=== PATIENT | female | born 1990 | race African-American/Black ===

== ENCOUNTER 2017-09-20 17:09 | Inpatient (IN) | payer OTHER ==
[~2017-09-20] VITALS: Ht 167.6 cm; Wt 172.0 kg
[2017-09-20] VITALS (9 sets, daily range): BP systolic 119–150; BP diastolic 63–90
[~2017-09-20 17:09] MED LIST: ALBUTEROL2.5 MG/3 M IH; TYLENOL WITH C1 EACH PO
[2017-09-20 19:19] LABS: BASOPHIL (%) 0.3 % (0-1); EOSINOPHIL (%) 0.6 % (0-5); HEMATOCRIT 31.8 % (36.0-46.0); HEMOGLOBIN 10.4 G/DL (11.9-15.5); IMMATURE GRANULOCYTE (%) 0.2 % (0.0-0.7); LYMPHOCYTE (%) 55.4 % (15-42); LYMPHOCYTE COUNT 3.6 K/uL (1.0-2.8); MCH 27.1 PG (29.0-34.0); MCHC 32.7 G/DL (30.0-36.0); MCV 82.8 FL (83-99); MONOCYTE (%) 4.7 % (3-12); MONOCYTE COUNT 0.3 K/uL (0-0.8); NEUTROPHIL (%) 38.8 % (45-76); NEUTROPHIL COUNT 2.5 K/uL (1.8-6.4); PLATELET COUNT 335 K/uL (156-360); RBC DIS.WIDTH-SD 41.5 % (39-53); RED BLOOD COUNT 3.84 M/uL (3.80-5.20); WHITE BLOOD COUNT 6.6 K/uL (4.1-10.2)
[2017-09-20 19:38] LABS: ALBUMIN 3.3 G/DL (3.2-4.8); CHLORIDE 106 MEQ/L (99-109); POTASSIUM 3.4 MEQ/L (3.7-5.4); SODIUM 137 MEQ/L (136-147); TOTAL BILIRUBIN 0.3 MG/DL (0.0-1.0)
[2017-09-20 19:44] LABS: ALKALINE PHOSPHATASE 97 IU/L (3-129); ALT (GPT) 7 IU/L (3-49); AST (GOT) 11 IU/L (2-34); CREATININE 0.6 MG/DL (0.6-1.3); GFR ESTIMATE (CALCULATED) > 59 mL/min/; GLUCOSE 93 mg/dL (70-99); TOTAL PROTEIN 6.9 G/DL (6.4-8.3); UREA NITROGEN (BUN) 7 mg/dL (9-23)
[2017-09-20 20:53] LABS: UR CREATININE CONCENTRATION 259.9 MG/DL
[2017-09-21] VITALS (33 sets, daily range): BP systolic 114–163; BP diastolic 57–93
[2017-09-21] MEDS ORDERED: PROMETHAZINE HC25 M1 PO (20:25)
[2017-09-21] MEDS ORDERED: IBUPROFEN800 MG PO (20:36)
[2017-09-22 00:12] VITALS: BP 134/73
[2017-09-22 07:58] LABS: BASOPHIL (%) 0.4 % (0-1); EOSINOPHIL (%) 0.5 % (0-5); HEMATOCRIT 32.6 % (36.0-46.0); HEMOGLOBIN 10.5 G/DL (11.9-15.5); IMMATURE GRANULOCYTE (%) 0.4 % (0.0-0.7); LYMPHOCYTE (%) 43.4 % (15-42); LYMPHOCYTE COUNT 3.4 K/uL (1.0-2.8); MCH 26.4 PG (29.0-34.0); MCHC 32.2 G/DL (30.0-36.0); MCV 81.9 FL (83-99); MONOCYTE (%) 7.4 % (3-12); MONOCYTE COUNT 0.6 K/uL (0-0.8); NEUTROPHIL (%) 47.9 % (45-76); NEUTROPHIL COUNT 3.8 K/uL (1.8-6.4); PLATELET COUNT 321 K/uL (156-360); RBC DIS.WIDTH-CV 13.9 % (11.8-14.6); RBC DIS.WIDTH-SD 41.3 % (39-53); RED BLOOD COUNT 3.98 M/uL (3.80-5.20); WHITE BLOOD COUNT 7.8 K/uL (4.1-10.2)
[2017-09-22 12:24] VITALS: BP 153/96
[2017-09-22 14:23] VITALS: BP 142/83
[2017-09-22 18:53] VITALS: BP 146/84
[2017-09-22 23:03] VITALS: BP 145/83
[2017-09-23 03:01] VITALS: BP 136/79
[2017-09-23 07:24] VITALS: BP 158/89
[2017-09-23] MEDS ORDERED: LABETALOL HCL200 MG PO (09:39)
[2017-09-23 10:43] VITALS: BP 142/88
== END 2017-09-23 13:26 | disposition home or self-care (01) | DRG 774 ==
LOC: LDRP-OP 17:09 → 2WEST 17:10 → LDRP-OP 10-28 10:11
PROVIDERS: Nurse Practitioner
PROC: 3E033VJ Introduction of Other Hormone into Peripheral Vein, Percutaneous Approach (ICD-10-PCS; principal; 2017-09-21)
PROC: 10E0XZZ Delivery of Products of Conception, External Approach (ICD-10-PCS; principal; 2017-09-21)
PROC: 3E0P7VZ Introduction of Hormone into Female Reproductive, Via Natural or Artificial Opening (ICD-10-PCS; principal; 2017-09-21)
PROC: 10907ZC Drainage of Amniotic Fluid, Therapeutic from Products of Conception, Via Natural or Artificial Opening (ICD-10-PCS; principal; 2017-09-21)
PROC: 00HU33Z Insertion of Infusion Device into Spinal Canal, Percutaneous Approach (ICD-10-PCS; principal; 2017-09-21)
PROC: 3E0S3BZ Introduction of Anesthetic Agent into Epidural Space, Percutaneous Approach (ICD-10-PCS; principal; 2017-09-21)
DX: O15.1 Eclampsia complicating labor (principal); Z3A.39 39 weeks gestation of pregnancy; E66.01 Morbid (severe) obesity due to excess calories; O99.214 Obesity complicating childbirth; O99.824 Streptococcus B carrier state complicating childbirth; Z37.0 Single live birth; Z68.41 Body mass index [BMI] 40.0-44.9, adult; Z87.891 Personal history of nicotine dependence; O99.52 Diseases of the respiratory system complicating childbirth; J45.909 Unspecified asthma, uncomplicated
CPT/HCPCS: 80053; 82570; 84156; 85025; 90686; C1755; G0378; J0690; J3010; J7120

== ENCOUNTER 2017-09-25 11:30 | Emergency (ER) | payer OTHER ==
[~2017-09-25] VITALS: Ht 167.6 cm; Wt 169.2 kg
[~2017-09-25 11:30] MED LIST changes: +IBUPROFEN800 MG PO; +LABETALOL HCL200 MG PO; +PROMETHAZINE HC25 M1 PO
[2017-09-25] MEDS ORDERED: PREDNISONE20 MG PO (12:26)
[2017-09-25] MEDS ORDERED: DUONEB 2.5-0.5 M3 ML AEROSOL (12:26)
[2017-09-25 12:56] VITALS: BP 163/111
== END 2017-09-25 14:25 | disposition home or self-care (01) ==
LOC: EME 11:30
DX: O99.53 Diseases of the respiratory system complicating the puerperium (principal); J45.909 Unspecified asthma, uncomplicated; J06.9 Acute upper respiratory infection, unspecified; Z87.891 Personal history of nicotine dependence; R73.03 Prediabetes; Z88.0 Allergy status to penicillin
CPT/HCPCS: 99281; 99284